=== PATIENT | male | born 1945 | race Caucasian/White ===

== ENCOUNTER 2018-12-27 00:32 | Outpatient (CLI) | payer MEDICARE, BC ==
[2018-12-27 15:25] LABS: #Eosinphils 0.3 thou/uL (0.0-0.7); #Lymphocytes 1.3 thou/uL (1.20-3.40); #Monocytes 0.6 thou/uL (0.11-0.59); #Neutrophils 4.7 thou/uL (1.40-6.50); %Basophils 0.5 % (0.0-1.0); %Eosinophils 4.7 % (0.0-10.0); %Lymphocytes 19.1 % (21.0-51.0); %Monocytes 8.1 % (0.0-10.0); %Neutrophils 67.6 % (42.0-75.0); Hemoglobin 15.6 g/dL (14.0-18.0); Mean Corpuscular HGB CONC 34.4 g/dL (32.0-36.0); Mean Corpuscular Hemoglobin 30.7 pg (27.0-31.0); Mean Corpuscular Volume 89.4 fL (78.0-98.0); Mean Platelet Volume 6.6 fL (7.4-10.4); Platelet Count 159 thou/uL (130-400); RBC Distribution Width 11.9 % (11.5-14.5); Red Blood Cell (RBC) Count 5.08 mill/uL (4.70-6.10); White Blood Cell (WBC) Count 6.9 thou/uL (4.8-10.8)
== END 2018-12-27 00:33 | disposition home or self-care (01) ==
LOC: LABBT 00:32
PROVIDERS: ATTEND Orthopaedic Surgery Hand Surgery
DX: Z01.812 Encounter for preprocedural laboratory examination (principal); M65.4 Radial styloid tenosynovitis [de Quervain]; M67.431 Ganglion, right wrist
CPT/HCPCS: 85025; 85652

== ENCOUNTER 2019-01-09 06:46 | Day surgery (SDC) | payer MEDICARE, BC ==
[2018-12-27 14:22] VITALS: BMI 25.0
[2019-01-09] MEDS ORDERED: Clindamycin/D5W 600 mg/50 ml Premix Bag ONE (08:13)
[2019-01-09] MEDS ORDERED: Lidocaine 1% PF 5 ML VIAL ONE (08:38)
[2019-01-09] MEDS ORDERED: PROPOFOL 200 MG/20 ML VIAL ONE (08:38)
[2019-01-09] MEDS ORDERED: ePHEDrine 50 MG/ML VIAL ONE (08:38)
[2019-01-09] MEDS ORDERED: Ondansetron PF 4 MG/2 ML Vial ONE (08:38)
[2019-01-09] MEDS ORDERED: PHENYLEPHRINE-NS 100 MCG/ML 10 ML SYRINGE ONE (08:38)
[2019-01-09] MEDS ORDERED: Dexamethasone 20 MG/5 ML VIAL ONE (08:38)
[2019-01-09] MEDS ORDERED: Metoprolol Tartrate 5 MG/5 ML VIAL ONE (08:38)
[2019-01-09] MEDS ORDERED: Fentanyl 100 MCG/2 ML VIAL ONE (11:38)
[2019-01-09] MEDS ORDERED: Bupivacaine PF 0.5% 30 ML VIAL ONE (11:48)
[2019-01-09] MEDS ORDERED: Betamet Acet/Betamet Na Ph 30 MG/5 ML VIAL ONE (11:48)
[2019-01-09] MEDS ORDERED: Ketorolac Tromethamine 30 MG/ML VIAL ONE (13:27)
--- NOTE | 2019-01-10 15:03 | OP ---
DATE OF PROCEDURE: 01/09/2019 PREOPERATIVE DIAGNOSES: 1. Right 1st dorsal palmar ganglion involving the tendon sheath. 2. Right 1st dorsal compartment tenovaginitis. 3. Right 1st dorsal compartment tendinitis/tenosynovitis. PROCEDURE PERFORMED: 1. Removal of right 1st dorsal compartment tendon sheath ganglion and mass, 7 mm. 2. Tenosynovectomy, radical 1st dorsal compartment, extensor tendons. 3. Right 1st dorsal compartment release as de Quervain release. TOURNIQUET TIME: 14 minutes. FINDINGS: Separate extensor pollicis brevis versus abductor pollicis longus sheath underneath 1st dorsal compartment extensor mcgregor. INDICATIONS: Failed conservative treatment. DESCRIPTION OF PROCEDURE: After successful general endotracheal anesthesia, the limb was prepped and draped. The patient had the incision outlined which was zigzag along the first dorsal compartment and we could palpate the ganglion. It was injected with 10 mL of 0.5% Marcaine. The limb was exsanguinated, tourniquet inflated to 250 mmHg pressure after prepping and draping. A time-out was done appropriately. Through zigzag incision carried out to skin and subcutaneous tissue. We saw a ganglion of approximately 6 mm diameter coming from the tendon sheath, so it was lifted off from the tendon. The abductor pollicis longus tenosynovium. We then did release the retinaculum to release the tenovaginosis of the first dorsal compartment constriction. We then inspected the tendon and found it was a separate abductor pollicis longus and extensor pollicis brevis compartment with in the first dorsal compartment. Each one had tenosynovitis, so radical extensor tenosynovectomy was done respectively protecting and visualized the radial nerve superficial and terminal branches. Tourniquet released, specimen sent to the lab. The wound was closed with interrupted 4-0 nylon mattress pattern. 3 mL Celestone was placed over the tendon sheath before the wound was closed and hemostasis was obtained with tourniquet deflation. The patient then left the operating room without evidence of anesthetic or operative complication and a thumb spica splint. Job ID: [id number]
== END 2019-01-09 14:20 | disposition home or self-care (01) ==
LOC: SDC 06:46
PROVIDERS: ATTEND Orthopaedic Surgery Hand Surgery
PROC: 0LN70ZZ Release Right Hand Tendon, Open Approach (ICD-10-PCS; principal; 2019-01-09)
PROC: 0LN50ZZ Release Right Lower Arm and Wrist Tendon, Open Approach (ICD-10-PCS; 2019-01-09)
DX: M67.441 Ganglion, right hand (principal); M65.4 Radial styloid tenosynovitis [de Quervain]; F17.220 Nicotine dependence, chewing tobacco, uncomplicated; Z79.899 Other long term (current) drug therapy; Z88.0 Allergy status to penicillin; Z88.8 Allergy status to other drugs, medicaments and biological substances; Z91.040 Latex allergy status
CPT/HCPCS: 88304; 88305; J0702; J1100; J1885; J2001; J2405; J2704; J3010; J3490; S0020

== ENCOUNTER 2019-07-19 09:48 | Outpatient (CLI) | payer MEDICARE, BC ==
--- NOTE | 2019-07-19 12:20 | ULT ---
THYROID ULTRASOUND: Date: 07/19/19 HISTORY: Thyroid nodule. COMPARISON: 07/11/17 study. FINDINGS: Real-time imaging of the right and left lobes of the thyroid gland were performed. The right lobe ajit sures 1.5 x 1.4 x 3.6 cm. The left lobe measures 0.7 x 1.2 x 2.1 cm. There are tiny subcentimeter thy roid nodules demonstrated. On the right side, the largest of these is an approximately 4.0 mm complex cystic lesion. On the left side, there is a 6.0 x 7.0 mm solid lesion, and an adjacent approximately 7.0 mm cystic area. Solid nodule is minimally increased in size as compared to the prior exam. The m easurements on today's study are 5.0 x 6.0 mm, as compared to approximately 4.0 x 4.0 mm on the prior study. This is not felt to be a significant interval change. IMPRESSION: Small bilateral thyroid nodules. Continued follow-up suggested. POS: [facility]
== END 2019-07-19 09:49 | disposition home or self-care (01) ==
LOC: BICULT 09:48
PROVIDERS: ATTEND Family Medicine
DX: E07.89 Other specified disorders of thyroid (principal); E04.2 Nontoxic multinodular goiter
CPT/HCPCS: 76536

== ENCOUNTER 2022-05-31 10:04 | Outpatient (CLI) | payer MEDICARE, BC | END 2022-05-31 10:05 | disposition home or self-care (01) | LOC: RAD 10:04 | PROVIDERS: ATTEND Internal Medicine Critical Care Medicine | DX: R06.00 Dyspnea, unspecified (principal) | CPT/HCPCS: 71046 ==

== ENCOUNTER 2022-06-09 10:41 | Outpatient (CLI) | payer MEDICARE, BC ==
[2022-06-09 12:32] LABS: #Eosinphils 0.2 10x3/uL (0.0-0.5); #Monocytes 0.6 10x3/uL (0.0-1.1); #Neutrophils 3.7 10x3/uL (1.5-8.4); %Basophils 0.6 % (0.0-2.0); %Eosinophils 4.1 % (0.0-6.0); %Lymphocytes 16.3 % (18.0-47.0); %Monocytes 10.2 % (0.0-10.0); %Neutrophils 68.4 % (40.0-75.0); Hemoglobin 14.7 g/dL (13.5-17.5); Mean Corpuscular HGB CONC 33.9 g/dL (32.0-36.0); Mean Corpuscular Hemoglobin 30.7 pg (27.0-33.0); Mean Corpuscular Volume 90.6 fl (81.2-95.1); Mean Platelet Volume 9.7 fl (7.4-10.4); Platelet Count 182 10x3/uL (150-450); RBC Distribution Width 12.8 % (11.5-14.5); Red Blood Cell (RBC) Count 4.79 10x6/uL (4.32-5.72); White Blood Cell (WBC) Count 5.4 10x3/uL (3.5-10.5)
[2022-06-09 12:47] LABS: Anion Gap 13 mmol/L (10-20); BUN (Urea Nitrogen) 21 mg/dL (8.4-25.7); Calc. Creatinine Clearance 0 mL/min (70-130); Carbon Dioxide 26 mmol/L (23-31); Chloride 104 mmol/L (98-107); Estimated GFR 71; Glucose 94 mg/dL (83-110); Potassium 4.7 mmol/L (3.5-5.1); Sodium 138 mmol/L (136-145)
== END 2022-06-09 10:42 | disposition home or self-care (01) ==
LOC: LABBT 10:41
PROVIDERS: ATTEND Surgery
DX: Z01.812 Encounter for preprocedural laboratory examination (principal); K64.9 Unspecified hemorrhoids; Z20.822 Contact with and (suspected) exposure to COVID-19
CPT/HCPCS: 80048; 85025; 87811

== ENCOUNTER 2022-06-14 09:53 | Day surgery (SDC) | payer MEDICARE, BC ==
[2022-06-14] MEDS ORDERED: Bupivacaine/Epinephrine 0.25% 30 ML VIAL ONE (11:26)
[2022-06-14] MEDS ORDERED: fentaNYL Citrate/PF 100 MCG/2 ML SYRINGE ONE (11:38)
[2022-06-14] MEDS ORDERED: Sodium Chloride 0.9% 100 ML ONE (11:42)
[2022-06-14] MEDS ORDERED: ceFOXitin 1 GM VIAL ONE (11:42)
[2022-06-14] MEDS ORDERED: Dexamethasone 20 MG/5 ML VIAL ONE (12:03)
[2022-06-14] MEDS ORDERED: Rocuronium Bromide 10 MG/ML (10ML VIAL) ONE (12:03)
[2022-06-14] MEDS ORDERED: PROPOFOL 200 MG/20 ML VIAL ONE (12:03)
[2022-06-14] MEDS ORDERED: Lidocaine 1% MPF 2 ML VIAL ONE (12:03)
[2022-06-14] MEDS ORDERED: Ondansetron PF 4 MG/2 ML Vial ONE (12:03)
[2022-06-14] MEDS ORDERED: SUGAMMADEX SODIUM 200 MG/2 ML VIAL ONE (12:30)
== END 2022-06-14 14:10 | disposition home or self-care (01) ==
LOC: SDC 09:53
PROVIDERS: ATTEND Surgery
PROC: 06BY0ZC Excision of Hemorrhoidal Plexus, Open Approach (ICD-10-PCS; principal; 2022-06-14)
DX: K64.4 Residual hemorrhoidal skin tags (principal); K64.8 Other hemorrhoids; J45.909 Unspecified asthma, uncomplicated; K21.9 Gastro-esophageal reflux disease without esophagitis; Z87.891 Personal history of nicotine dependence; Z79.899 Other long term (current) drug therapy; Z88.0 Allergy status to penicillin; Z88.1 Allergy status to other antibiotic agents; Z91.040 Latex allergy status
CPT/HCPCS: 88304; J0694; J1100; J2405; J2704; J3490

== ENCOUNTER 2022-12-01 08:18 | Outpatient (CLI) | payer MEDICARE, BC | END 2022-12-01 08:19 | disposition home or self-care (01) | LOC: RAD 08:18 | PROVIDERS: ATTEND Internal Medicine Critical Care Medicine | DX: R06.00 Dyspnea, unspecified (principal) | CPT/HCPCS: 71046 ==